=== PATIENT | female | born 2000 | race African-American/Black ===

== ENCOUNTER 2018-03-01 21:03 | Emergency (ER) | payer OTHER ==
[~2018-03-01] VITALS: Ht 160 cm; Wt 52.7 kg
[2018-03-01 21:09] VITALS: BP 117/74; TEMP 98.6
[2018-03-01 22:39] VITALS: PULSE 82
== END 2018-03-01 22:41 | disposition home or self-care (01) ==
LOC: COL.ER 21:03
DX: R07.89 Other chest pain (principal)